=== PATIENT | female | born 1980 | race Caucasian/White ===

== ENCOUNTER → 2017-12-24 10:23 | Outpatient (CLI) | payer BC, SELFPAY ==
[2017-12-24 12:06] LABS: Absolute Neutrophil Count 2.6 X10^3/uL (2.0-7.7); Basophil# 0.04 X10^3/uL; Basophil% 0.8 % (0-1); Eosinophils% 2.1 % (0-5); Hemoglobin 13.4 g/dl (12.0-15.0); Lymphocyte % 37.7 % (19-41); Mean Corp Hgb Conc 32.7 g/gl (32-36); Mean Corpuscular Hgb 29.8 pg (27.0-32.0); Mean Corpuscular Volume 91.3 fL (81-99); Monocyte# 0.26 X10^3/uL; Monocyte% 5.4 % (0-10); Neutrophil # 2.57 X10^3/uL (2.7-7.7); Neutrophil % 53.8 % (47-70); Platelet Count 245 K/mm3 (150-450); RBC Distribution Width CV 13.1 % (11.6-14.6); RBC Distribution Width SD 43.6 fl (35.1-43.9); Red Blood Count 4.49 M/mm3 (4.2-5.4); White Blood Count 4.8 K/mm3 (4.4-11.0)
[2017-12-24 12:09] LABS: POSITIVE COUNT NO; POSITIVE DIFFERENTIAL NO; POSITIVE MORPHOLOGY NO
[2017-12-24 12:36] LABS: Anion Gap 2 (5-15); BUN 15 mg/dL (7-18); BUN/Creat Ratio 23.1 RATIO (10-20); Calcium,Total 8.8 mg/dL (8.5-10.1); Chloride 106 mmol/L (98-107); Cholesterol 177 mg/dL (200); Creatinine, Serum 0.65 mg/dL (0.55-1.02); EST Glomerular Filtration Rate 109 mL/min (>60); Est Glom Filt Rate - Afr Amer 132 mL/min (>60); Glucose 88 mg/dL (74-106); High Density Lipoprotein 86 mg/dL; Potassium 4.2 mmol/L (3.5-5.1); Sodium Level 139 mmol/L (136-145); Triglycerides 42 mg/dL; Very Low Density Lipoprotein 8 mg/dL (5-40)
[2017-12-24 13:42] LABS: Vitamin D,25 Hydroxy 64.5 ng/mL (29.95-100.01)
== END ==
PROVIDERS: Family Provider Family Medicine; PCP Family Medicine; Visit Provider Family Medicine
DX: Z00.00 Encounter for general adult medical examination without abnormal findings (principal); R53.83 Other fatigue
CPT/HCPCS: 36415; 80048; 80061; 82306; 84443; 85025

== ENCOUNTER → 2018-05-21 14:39 | Outpatient (CLI) | payer BC, SELFPAY ==
--- NOTE | 2018-05-21 14:47 | RAD_ITS ---
STUDY: X-RAY - PELVIS REASON FOR EXAM: Female, 37 years old. Hip pain TECHNIQUE: One view of the pelvis was obtained. COMPARISON: None. FINDINGS: There is no evidence of fracture or dislocation. There are mild degenerative changes in the hips. There are no radiodense foreign bodies. RAD/Pelvis 1 or 2 Views IMPRESSION: No fracture or dislocation in the pelvis. Mild degenerative changes in the hips. Electronically Signed: Adalberto Atkins, at 23:18 EDT Tel , Service support ,
[2018-05-21 15:53] LABS: Absolute Lymphocyte Count 2.05 X10^3/ul (0.83-4.51); Absolute Neutrophil Count 3.3 X10^3/uL (2.0-7.7); Basophil# 0.05 X10^3/uL; Basophil% 0.9 % (0-1); Eosinophil# 0.06 X10^3/uL; Hematocrit 42.3 % (37-47); Hemoglobin 14.4 g/dl (12.0-15.0); Lymphocyte # 2.05 X10^3/ul (4.0); Lymphocyte % 35.2 % (19-41); Mean Corpuscular Hgb 30.3 pg (27.0-32.0); Mean Corpuscular Volume 88.9 fL (81-99); Mean Platelet Vol. 10.1 fl (6.2-12.0); Monocyte# 0.31 X10^3/uL; Monocyte% 5.3 % (0-10); Neutrophil # 3.34 X10^3/uL (2.7-7.7); Neutrophil % 57.4 % (47-70); Platelet Count 274 K/mm3 (150-450); RBC Distribution Width CV 12.9 % (11.6-14.6); RBC Distribution Width SD 41.9 fl (35.1-43.9); Red Blood Count 4.76 M/mm3 (4.2-5.4); White Blood Count 5.8 K/mm3 (4.4-11.0)
[2018-05-21 16:00] LABS: Color, Urine Yellow (Yellow); Glucose, Dipstick Normal (Normal); Ketone-Dipstick 5 mg/dl (Negative); Leukocyte Esterase-Dipstick Negative /ul (Negative); Nitrite-Dipstick Negative (Negative); Occult Blood-Urine Negative /ul (Negative); POSITIVE COUNT NO; POSITIVE DIFFERENTIAL NO; POSITIVE MORPHOLOGY NO; Protein-Dipstick Negative (Negative); Specific Gravity, Urine 1.015 (1.002-1.030); Urine Bilirubin Dipstick Negative (Negative); Urine Clarity Clear (Clear); Urine Urobilinogen Normal (Normal)
[2018-05-21 16:24] LABS: ALB/GLOB Ratio 1.2 RATIO (0.9-2.4); AST(SGOT) 19 U/L (15-37); Alanine Aminotransfer ALT/SGPT 24 U/L (13-56); Albumin, Serum 4.6 g/dL (3.2-5.0); Alkaline Phosphatase 49 U/L (45-117); Anion Gap 8 (5-15); BUN 11 mg/dL (7-18); BUN/Creat Ratio 14.1 RATIO (10-20); CRP < 2.90 mg/L (0.0-3.0); Calcium,Total 9.5 mg/dL (8.5-10.1); Chloride 104 mmol/L (98-107); Creatinine, Serum 0.78 mg/dL (0.55-1.02); EST Glomerular Filtration Rate 88 mL/min (>60); Est Glom Filt Rate - Afr Amer 107 mL/min (>60); Glucose 76 mg/dL (74-106); Potassium 3.6 mmol/L (3.5-5.1); Protein, Total 8.6 g/dL (6.4-8.2); Rheumatoid Factor < 10.0 IU/mL (<15); Sodium Level 141 mmol/L (136-145)
[2018-05-21 16:33] LABS: Erythrocyte Sedimentation Rate 3 mm/hr (0-20)
[2018-05-21 16:42] LABS: Protein, Urine (Random) < 6.0 mg/dL (<11.9)
[2018-05-22 09:52] LABS: Vitamin D,25 Hydroxy 44.9 ng/mL (29.95-100.01)
[2018-05-23 14:07] LABS: Anti-Centromere B Ab <0.2 AI (0.0-0.9); Anti-Jo <0.2 AI (0.0-0.9); Anti-Scleroderma-70 AB <0.2 AI (0.0-0.9); RNP Ab 0.2 AI (0.0-0.9); SJOGREN'S Anti-SS-A test 0.2 AI (0.0-0.9); SJOGREN'S Anti-SS-B test < 0.2 AI (0.0-0.9); Smith Ab <0.2 AI (0.0-0.9)
[2018-05-23 16:10] LABS: ANTINUCLEAR ANTIBODIES DIRECT Negative (Negative); Anti-dsDNA Ab 1 IU/mL (0-9)
[2018-05-27 14:07] LABS: Complement C3 113 mg/dL (82-167)
[2018-05-27 15:21] LABS: CCP IgG Antibodies 7 units (0-19); HEPATITIS B SURFACE AG Negative (Negative); HLA B27 Negative (.); Hep B Surface Antibodies Non Reactive (.); Hep C Antibodies 0.1 s/co ratio (0.0-0.9)
== END ==
PROVIDERS: Family Provider Family Medicine; PCP Family Medicine; Visit Provider Internal Medicine Rheumatology
DX: M06.4 Inflammatory polyarthropathy (principal); M35.00 Sjogren syndrome, unspecified; N30.10 Interstitial cystitis (chronic) without hematuria; F41.9 Anxiety disorder, unspecified
CPT/HCPCS: 36415; 72170; 80053; 81002; 81374; 82306; 82570; 84156; 85025; 85652; 86038; 86140; 86160; 86200; 86225; 86235; 86431; 86706; 86803; 87340

== ENCOUNTER 2022-03-23 15:00 | Outpatient (CLI) | payer BC, SELFPAY ==
[2022-03-29 18:03] LABS: HPV Reflexed? NOT INDICATED
== END 2022-03-23 23:59 | disposition home or self-care (01) ==
LOC: LABSPEC 03-24 07:04
PROVIDERS: PCP Family Medicine; Visit Provider Nurse Practitioner
DX: Z01.419 Encounter for gynecological examination (general) (routine) without abnormal findings (principal)
CPT/HCPCS: 88175; G0145

== ENCOUNTER → 2022-03-24 | Outpatient (CLI) | payer BC, SELFPAY ==
[2022-03-24 01:00] LABS: Absolute Lymphocyte Count 1.61 X10^3/uL (0.83-4.51); Absolute Neutrophil Count 4.1 X10^3/uL (2.0-7.7); Basophil# 0.05 X10^3/uL; Basophil% 0.8 % (0-1); Eosinophil# 0.07 X10^3/uL; Eosinophils% 1.1 % (0-5); Hematocrit 39.9 % (37-47); Hemoglobin 13.1 g/dL (12.0-15.0); Lymphocyte # 1.61 X10^3/ul (0.83-4.51); Lymphocyte % 25.9 % (19-41); Mean Corp Hgb Conc 32.8 g/dL (32-36); Mean Corpuscular Hgb 29.8 pg (27.0-32.0); Mean Corpuscular Volume 90.7 fL (81-99); Mean Platelet Vol. 10.5 fl (6.2-12.0); Monocyte# 0.39 X10^3/uL; Monocyte% 6.3 % (0-10); NRBC Flagged by Analyzer 0 % (0-5); Neutrophil # 4.09 X10^3/uL (2.7-7.7); Neutrophil % 65.7 % (47-70); Platelet Count 309 K/mm3 (150-450); RBC Distribution Width CV 13.1 % (11.6-14.6); RBC Distribution Width SD 43.5 fl (35.1-43.9); White Blood Count 6.2 K/mm3 (4.4-11.0)
[2022-03-24 01:22] LABS: BUN 12 mg/dL (7-18); Glucose 80 mg/dL (74-106)
[2022-03-24 01:23] LABS: ALB/GLOB Ratio 1.1 RATIO (0.9-2.4); AST(SGOT) 14 U/L (15-37); Alanine Aminotransfer ALT/SGPT 21 U/L (13-56); Albumin, Serum 3.9 g/dL (3.2-5.0); Alkaline Phosphatase 61 U/L (45-117); Anion Gap 4 (5-15); BUN/Creat Ratio 17.3 RATIO (10-20); Calcium,Total 9.2 mg/dL (8.5-10.1); Chloride 102 mmol/L (98-107); Cholesterol 192 mg/dL (200); EST Glomerular Filtration Rate 98 mL/min (>60); Est Glom Filt Rate - Afr Amer 119 mL/min (>60); Globulin 3.4 g/dL (2.2-4.2); High Density Lipoprotein 102 mg/dL; Potassium 4.2 mmol/L (3.5-5.1); Protein, Total 7.3 g/dL (6.4-8.2); Sodium Level 137 mmol/L (136-145); Thyroid Stim Hormone (TSH) 2.97 uIU/mL (0.358-3.74); Triglycerides 150 mg/dL; Very Low Density Lipoprotein 30 mg/dL (5-40)
== END | disposition home or self-care (01) ==
LOC: OLS.AHF 06:18 → LABSPEC 05-30 08:36
PROVIDERS: PCP Nurse Practitioner; Referring Provider Nurse Practitioner; Visit Provider Nurse Practitioner
DX: Z00.00 Encounter for general adult medical examination without abnormal findings (principal)
CPT/HCPCS: 80053; 80061; 84443; 85025

== ENCOUNTER → 2022-05-11 | Outpatient (CLI) | payer BC, SELFPAY ==
[2022-05-11 21:36] LABS: Thyroid Stim Hormone (TSH) 0.71 uIU/mL (0.358-3.74)
== END | disposition home or self-care (01) ==
PROVIDERS: PCP Nurse Practitioner; Visit Provider Nurse Practitioner
DX: E04.2 Nontoxic multinodular goiter (principal); E03.9 Hypothyroidism, unspecified
CPT/HCPCS: 84443

== ENCOUNTER → 2022-05-26 | Outpatient (CLI) | payer BC, SELFPAY ==
--- NOTE | 2022-05-26 11:56 | US_ITS ---
STUDY: THYROID ULTRASOUND REASON FOR EXAM: Female, 41 years old. Palpable nodules TECHNIQUE: Ultrasound evaluation of the thyroid was performed with real-time and static del castillo-scale imaging. COMPARISON: Previous study from outside institution not available for comparison. If/when it becomes available an addendum will be performed FINDINGS: RIGHT LOBE: The right lobe of the thyroid gland measures 4.6 x 1.5 x 1.3 cm. There is a homogeneous echotexture. Supervisor Special Effects notes 3 separate nodules, there is a 0.4 cm cyst, a partially calcified 0.6 cm solid nodule and a poorly defined 0.6 m solid nodule. LEFT LOBE: The left lobe of the thyroid gland measures 5.0 x 1.6 x 0.7 cm. There is a homogeneous echotexture. There is a solid 0.5 cm well-defined upper pole nodule. ISTHMUS: The isthmus measures 3 mm. The regional lymph nodes are normal. US/Thyroid IMPRESSION: Normal size thyroid gland. Bilateral nodules. TI-RADS points: 4. TI-RADS category: TR4. Nodules are moderately suspicious but no FNA or follow-up is necessary given the small size of the nodules. Electronically Signed: David Moore MD at 15:11 EDT ,
== END | disposition home or self-care (01) ==
PROVIDERS: PCP Nurse Practitioner; Referring Provider Nurse Practitioner; Visit Provider Nurse Practitioner
DX: E04.2 Nontoxic multinodular goiter (principal)
CPT/HCPCS: 76536

== ENCOUNTER → 2022-08-09 | Outpatient (CLI) | payer BC, SELFPAY | END | disposition home or self-care (01) | PROVIDERS: PCP Family Medicine; Visit Provider Nurse Practitioner | DX: Z00.00 Encounter for general adult medical examination without abnormal findings (principal) ==

== ENCOUNTER → 2022-08-09 | Outpatient (CLI) | payer BC, SELFPAY | END | disposition home or self-care (01) | LOC: LABSPEC 21:44 | PROVIDERS: PCP Nurse Practitioner; Visit Provider Nurse Practitioner | DX: N30.90 Cystitis, unspecified without hematuria (principal) | CPT/HCPCS: 87077; 87086; 87088; 87186 ==

== ENCOUNTER → 2023-05-22 | Outpatient (CLI) | payer BC, SELFPAY ==
[2023-05-22 22:16] LABS: Absolute Lymphocyte Count 2.17 X10^3/uL (0.83-4.51); Absolute Neutrophil Count 3.5 X10^3/uL (2.0-7.7); Basophil# 0.05 X10^3/uL; Basophil% 0.8 % (0-1); Eosinophil# 0.13 X10^3/uL; Eosinophils% 2.1 % (0-5); Hematocrit 41.6 % (37-47); Hemoglobin 13.2 g/dL (12.0-15.0); Lymphocyte # 2.17 X10^3/ul (0.83-4.51); Lymphocyte % 34.3 % (19-41); Mean Corp Hgb Conc 31.7 g/dL (32-36); Mean Corpuscular Hgb 29.4 pg (27.0-32.0); Mean Corpuscular Volume 92.7 fL (81-99); Mean Platelet Vol. 10.7 fl (6.2-12.0); Monocyte# 0.41 X10^3/uL; Monocyte% 6.5 % (0-10); NRBC Flagged by Analyzer 0 % (0-5); Neutrophil # 3.54 X10^3/uL (2.7-7.7); Platelet Count 294 K/mm3 (150-450); RBC Distribution Width CV 13.1 % (11.6-14.6); RBC Distribution Width SD 44.5 fl (35.1-43.9); Red Blood Count 4.49 M/mm3 (4.2-5.4); White Blood Count 6.3 K/mm3 (4.4-11.0)
[2023-05-22 22:40] LABS: AST(SGOT) 13 U/L (15-37); Alanine Aminotransfer ALT/SGPT 21 U/L (13-56); Albumin, Serum 3.7 g/dL (3.2-5.0); Alkaline Phosphatase 63 U/L (45-117); Anion Gap 5 (5-15); BUN 15 mg/dL (7-18); BUN/Creat Ratio 18.9 RATIO (10-20); Calcium,Total 9.5 mg/dL (8.5-10.1); Chloride 106 mmol/L (98-107); Cholesterol 193 mg/dL (200); Creatinine, Serum 0.79 mg/dL (0.55-1.02); EST Glomerular Filtration Rate 84 mL/min (>60); Est Glom Filt Rate - Afr Amer 102 mL/min (>60); Globulin 3.7 g/dL (2.2-4.2); Glucose 82 mg/dL (74-106); High Density Lipoprotein 86 mg/dL; Potassium 3.6 mmol/L (3.5-5.1); Protein, Total 7.4 g/dL (6.4-8.2); Sodium Level 139 mmol/L (136-145); Triglycerides 145 mg/dL; Very Low Density Lipoprotein 29 mg/dL (5-40)
[2023-05-23 17:46] LABS: Thyroid Stim Hormone (TSH) 1.31 uIU/mL (0.358-3.74)
== END | disposition home or self-care (01) ==
PROVIDERS: PCP Nurse Practitioner; Referring Provider Nurse Practitioner; Visit Provider Nurse Practitioner
DX: E03.9 Hypothyroidism, unspecified (principal); E78.00 Pure hypercholesterolemia, unspecified; D64.9 Anemia, unspecified
CPT/HCPCS: 80053; 80061; 84443; 85025

== ENCOUNTER → 2024-05-30 | Outpatient (CLI) | payer BC, SELFPAY ==
[2024-05-30 18:06] LABS: T4 Free Direct 0.88 ng/dL (0.76-1.46); Thyroid Stim Hormone (TSH) 0.749 uIU/mL (0.358-3.740)
== END | disposition home or self-care (01) ==
LOC: MFPLAB 14:45
PROVIDERS: PCP Nurse Practitioner; Visit Provider Registered Nurse
DX: E03.9 Hypothyroidism, unspecified (principal)
CPT/HCPCS: 36415; 84439; 84443

== ENCOUNTER → 2024-06-03 | Outpatient (CLI) | payer BC, SELFPAY ==
--- NOTE | 2024-06-03 14:06 | US_ITS ---
STUDY: THYROID ULTRASOUND REASON FOR EXAM: Female, 44 years old patient with abnormal ultrasound. TECHNIQUE: Ultrasound evaluation of the thyroid was performed with real-time and static del castillo-scale imaging. COMPARISON: Thyroid ultrasound dated May 26, 2022. FINDINGS: RIGHT LOBE: The right lobe of the thyroid gland measures 3.8 x 1.2 x 1.2 cm. There is a heterogeneous echotexture. There are scattered small nodules. There is a hypoechoic nodule present within the mid pole of the right lobe of the thyroid that measures 4.3 x 2.8 x 5.4 mm in size. There is a second more isoechoic nodule within the upper pole of the right lobe of thyroid measuring 3.5 x 2.7 x 3.0 mm. There is an echogenic nodule within the lower pole of the right lobe of thyroid measuring 5.5 x 4.2 x 5.4 mm. This lateralizes acoustic shadowing suggesting associated calcification. This nodule appears similar on the previous ultrasound. LEFT LOBE: The left lobe of the thyroid gland measures 4.7 x 1 x 1.6 cm. cm. There is a heterogeneous echotexture. There is a well-circumscribed almost isoechoic nodule within the upper pole of the left lobe of thyroid measuring 5.2 x 3.9 x 5.5 mm. There is a peripheral curvilinear lucency within this nodule. This appears similar to previous ultrasound. ISTHMUS: The isthmus measures 2 mm. The regional lymph nodes are normal. US/Thyroid IMPRESSION: Scattered thyroid nodules as described. The largest nodules in both lobes appear similar to previous ultrasound. Electronically Signed: Nisha Andrade MD at 8:05 EDT ,
== END | disposition home or self-care (01) ==
PROVIDERS: PCP Family Medicine; Referring Provider Registered Nurse; Visit Provider Registered Nurse
DX: R93.89 Abnormal findings on diagnostic imaging of other specified body structures (principal)
CPT/HCPCS: 76536

== ENCOUNTER 2024-07-14 10:34 | Emergency (ER) | payer BC, SELFPAY ==
[2024-07-14] VITALS (11 sets, daily range): BP systolic 79–123; BP diastolic 60–77; PULSE 62–103; RESP 16–18; TEMP 37.1–37.4; O2SAT 98–100; BMI 21.5
--- NOTE | 2024-07-14 11:10 | EKG12_ITS ---
Test Reason : Blood Pressure : / mmHG Vent. Rate : 078 BPM Atrial Rate : 078 BPM P-R Int : 128 ms QRS Dur : 090 ms QT Int : 384 ms P-R-T Axes : 063 070 030 degrees QTc Int : 437 ms Normal sinus rhythm Normal ECG Confirmed by KARLI DOSS MD ([id number]), news assignment editor GIFTY RAHMAN ([id number]) on 07/15/2024 8:48:33 AM Referred By: LADY Confirmed By:KARLI DOSS MD
--- NOTE | 2024-07-14 11:10 | CT_ITS ---
HISTORY: periumbilical pain. TECHNIQUE: Helically acquired images were obtained of the abdomen and pelvis after the intravenous administration of 100mL Isovue-300. A radiation dose optimization technique was used for this scan. 367 images. COMPARISON: 02/29/2016. FINDINGS: LOWER CHEST: Trace bilateral pleural effusions with mild lower lobe atelectasis. BOWEL: Bowel including appendix nondilated. Moderate stool in the colon. PERITONEUM: No significant ascites. LIVER: No enhancing mass. Mild periportal edema. GALLBLADDER/BILIARY TREE: Cholecystectomy. SPLEEN/PANCREAS: Homogeneous and nonenlarged. ADRENAL GLANDS/KIDNEYS: Unremarkable. VESSELS: No abdominal aortic aneurysm. PELVIC ORGANS: Chronic prominent adnexal vessels. BONES: Intact. CT/Abdomen/Pelvis W IV Cont ONLY IMPRESSION: Moderate stool in the colon. Trace pleural effusions. Mild periportal edema of the liver and prominent adnexal vessels suggesting pelvic congestive syndrome, similar to prior. Electronically Signed: Marielos Galvan MD at 15:21 EDT ,
[2024-07-14 11:32] LABS: Absolute Lymphocyte Count 0.52 X10^3/uL (0.83-4.51); Absolute Neutrophil Count 1.8 X10^3/uL (2.0-7.7); Basophil# 0.02 X10^3/uL; Basophil% 0.8 % (0-1); Hematocrit 38.3 % (37-47); Hemoglobin 12.6 g/dL (12.0-15.0); Lymphocyte # 0.52 X10^3/ul (0.83-4.51); Lymphocyte % 20.6 % (19-41); Mean Corp Hgb Conc 32.9 g/dL (32-36); Mean Corpuscular Hgb 29.4 pg (27.0-32.0); Mean Corpuscular Volume 89.3 fL (81-99); Mean Platelet Vol. 9.5 fl (6.2-12.0); Monocyte# 0.14 X10^3/uL; Monocyte% 5.5 % (0-10); NRBC Flagged by Analyzer 0 % (0-5); Neutrophil # 1.84 X10^3/uL (2.7-7.7); Neutrophil % 72.7 % (47-70); POSITIVE DIFFERENTIAL YES; Platelet Count 156 K/mm3 (150-450); RBC Distribution Width CV 13.1 % (11.6-14.6); RBC Distribution Width SD 42.8 fl (35.1-43.9); Red Blood Count 4.29 M/mm3 (4.2-5.4); White Blood Count 2.5 K/mm3 (4.4-11.0)
--- NOTE | 2024-07-14 11:33 | EDS_ITS ---
HPI History of Present Illness Chief Complaint: Fever Narrative Narrative: Patient is a 44-year-old female with no known significant past medical history who presents to the emergency department the chief complaint of fever and chills not feeling well. States on of this past week she started not feeling well and by Sunday she was breaking out in sweats. Patient denies any recent sick contacts. States that she followed up with a outpatient clinic and they advised her to come here for the valuation management. Patient states that she has been having some abdominal pain around her bellybutton as well. Patient states that she had her gallbladder removed but has all her other organs. Patient denies any recent sick contacts. States that nobody else is sick. She notes that she has had a fever at home of 103. PFSH FOR[facility]LY [facility], [facility] Medical History Abnormal menses delivery delivered Home Medications ?Medication ?Instructions ?Recorded ?Last Taken ?Type famotidine 20 mg tablet 20 mg PO BID ##30 02/29/16 Unknown Rx multivitamin 1 tab PO DAILY 12/07/21 Unknown History Bacillus coagulans 800 million cell PO 03/23/22 Unknown History cell tablet (Digestive Advantage Probiotics-Prebiotic) collagen PO QDAY 03/23/22 Unknown History levothyroxine 50 mcg tablet 50 mcg PO DAILY #30 tabs 05/23/23 Unknown Rx dicyclomine 10 mg capsule 10 mg PO TID PRN abdominal pain 07/14/24 Unknown Rx #20 caps ondansetron 4 mg disintegrating 4 mg PO Q6H PRN nausea and 07/14/24 Unknown Rx tablet vomiting #20 tabs Allergy/AdvReac Type Severity Reaction Status Date / Time morphine Allergy Anaphylaxis Verified 07/14/24 10:35 Surgical History History of cholecystectomy Social History Smoking Status: Former smoker ROS ROS ED ROS Narrative Constitutional: Complains of fever and chills as noted above denies any headaches Eyes: Denies change in vision double or blurry vision Cardiovascular: Denies chest pain or palpitations Respiratory: Denies coughing wheezing shortness of breath Abdomen: Complains of abdominal pain nausea as noted above denies vomiting diarrhea : Denies any painful urination, polyuria complains that she is on her menstrual cycle currently Neurological: Denies numbness, weakness, tingling Musculoskeletal: Denies back pain Skin: Denies rashes or lesions EXAM Physical Exam Narrative Exam Narrative: General: Patient lying in bed rest comfortably appears to be not feeling well overall Head: Atraumatic, normocephalic Eyes: PERRL bilateral, EOMI bilateral, no conjunctival injection noted Neck: Soft, supple, trach midline, patient is full range of motion of her neck no concern for meningitis Cardiovascular: Patient tachycardic with a regular rhythm no murmurs gallops rubs noted Respiratory: Clear to auscultation bilaterally no rales rhonchi or wheezes noted Abdomen: Soft, nondistended, tenderness palpation around her umbilical region Extremities: +5/5 strength noted in the bilateral lower extremities, no pedal edema no exam Neurological: Patient following commands knew that she was at [facility] years 2023 Skin: Warm, dry, tact Const Vital Signs: 07/14/24 10:35 07/14/24 11:26 07/14/24 11:38 Temperature 99.2 F H 99.2 F H Temperature Source Oral Oral Pulse Rate 103 H 77 78 Respiratory Rate 18 16 Respiratory Pattern Blood Pressure 117/68 98/67 96/62 Blood Pressure Mean 84 77 73 Pulse Ox 100 98 98 Oxygen Delivery Method Room Air Room Air Room Air 07/14/24 11:42 07/14/24 12:00 07/14/24 13:00 Temperature 99.2 F H 99.3 F H Temperature Source Oral Oral Pulse Rate 70 62 Respiratory Rate 16 16 Respiratory Pattern Normal Blood Pressure 101/70 89/65 L Blood Pressure Mean 80 73 Pulse Ox 98 98 Oxygen Delivery Method Room Air Room Air 07/14/24 13:34 07/14/24 14:00 07/14/24 15:00 Temperature 99.2 F H 99.0 F Temperature Source Oral Oral Pulse Rate 66 70 Respiratory Rate 16 16 Respiratory Pattern Blood Pressure 79/60 L 105/70 100/74 Blood Pressure Mean 66 81 82 Pulse Ox 98 98 Oxygen Delivery Method Room Air Room Air 07/14/24 16:00 07/14/24 17:00 Temperature 99.0 F 99.0 F Temperature Source Oral Oral Pulse Rate 68 74 Respiratory Rate 16 16 Respiratory Pattern Blood Pressure 103/77 91/72 Blood Pressure Mean 85 78 Pulse Ox 98 Oxygen Delivery Method Room Air MDM MDM MDM Narrative Medical decision making narrative: Patient is a 44-year-old female who presents to the emergency department the chief complaint of fever chills diffuse bodyaches and not feeling well. Patient will have a workup performed here on the differential diagnose includes but not limited to viral gastroenteritis, COVID, flu, appendicitis. Once workup is obtained reviewed she will be reevaluated. Patient be given IV fluids for hydration and Zofran. Patient's CBC showed a white blood count 2.5, previous blood count on 05/22/2023 showed a white blood cell count of 6.3, hemoglobin stable 12.6, platelet count was noted to be normal at 156, her absolute neutrophil count was noted be 1.8 which is mildly low based on lab studies here, sodium was noted be normal 136, potassium normal 3.9, creatinine normal at 0.76. Patient's total bilirubin was 81.70 is chronically elevated, AST and ALT were 42 and 48 respectively, troponin normal at 19 EKG reviewed and showed sinus rhythm with a rate of 78 bpm, lipase normal at 37. Patient's urinalysis showed 150 ketones this likely secondary to dehydration, 250 occult blood negative nitrites, negative leukocyte esterase 5- 10 white cells with 1+ bacteria she does not have any urinary symptoms, test was negative. Patient's urine will be sent for culture. Patient CT abdomen pelvis showed trace pleural effusions mild periportal edema of the liver and prominent adnexal vessels suggesting pelvic congestion syndrome which is similar to previous exam. Patient's COVID, flu, RSV were negative. Patient's strep pyogenes group A was negative and this will be sent for culture. Patient's monotest was negative. On reevaluation the patient she states that she feels similar to when she arrived. Patient states that her her abdominal pain is waxing and waning. Patient denies any recent travel history denies any rashes denies any recent sick contacts. Patient denies any recent weight loss. Patient has remained afebrile from the time that she has arrived despite saying that she has had fevers at home of 103. I did offer her admission for observation for further workup of her symptoms and not feeling well however she states that she needs to get home to her family there depending on her. She was advised to have her blood work repeated within the next week. She was advised to return with worsening symptoms or any other concerns. She will be sent a prescription for Levsin/Bentyl, Zofran and was advised to rotate Tylenol and ibuprofen [id number]. She was advised to start with a bland diet and advance as tolerated. Lab Data Labs: Laboratory Results - last 24 hr 07/14/24 07/14/24 07/14/24 11:20 12:01 14:18 WBC 2.5 L RBC 4.29 Hgb 12.6 Hct 38.3 MCV 89.3 MCH 29.4 MCHC 32.9 RDW Std Deviation 42.8 RDW Coeff of Jude 13.1 Plt Count 156 MPV 9.5 Immature Gran % (Auto) 0.400 Neut % (Auto) 72.7 H Lymph % (Auto) 20.6 [place] % (Auto) 5.5 Eos % (Auto) 0.0 Baso % (Auto) 0.8 Absolute Neuts (auto) 1.8 L Absolute Lymphs (auto) 0.52 L Nucleated RBC % 0 Differential Comment COMMENT Diff Path Review May foll Sodium 136 Potassium 3.9 Chloride 102 Carbon Dioxide 26.0 Anion Gap 8 BUN 10 Creatinine 0.76 Estim Creat Clear Calc 78.14 Est GFR (MDRD) Af Amer 106 Est GFR (MDRD) Non-Af 88 BUN/Creatinine Ratio 13.1 Glucose 87 Calcium 8.4 L Total Bilirubin 1.70 H AST 42 H ALT 48 Alkaline Phosphatase 80 Troponin I High Sens 19 Total Protein 6.9 Albumin 3.3 Globulin 3.6 Albumin/Globulin Ratio 0.9 Lipase 37 Urine Color Yellow Urine Clarity Sl. Cloudy Urine pH 6.0 Ur Specific Armour 1.010 Urine Protein 30 H Urine Glucose (UA) Normal Urine Ketones 150 A* Urine Occult Blood 250 H Urine Nitrite Negative Urine Bilirubin Negative Urine Urobilinogen Normal Ur Leukocyte Esterase Negative Urine RBC 5-10 SEEN Urine WBC 5-10 SEEN Ur Squamous Epith Cells 0-5 SEEN Urine Bacteria 1+ Urine Mucus 0 SEEN Urine Test Cancelled Negative Monoscreen 07/14/24 16:14 WBC RBC Hgb Hct MCV MCH MCHC RDW Std Deviation RDW Coeff of Jude Plt Count MPV Immature Gran % (Auto) Neut % (Auto) Lymph % (Auto) [place] % (Auto) Eos % (Auto) Baso % (Auto) Absolute Neuts (auto) Absolute Lymphs (auto) Nucleated RBC % Differential Comment Diff Path Review Sodium Potassium Chloride Carbon Dioxide Anion Gap BUN Creatinine Estim Creat Clear Calc Est GFR (MDRD) Af Amer Est GFR (MDRD) Non-Af BUN/Creatinine Ratio Glucose Calcium Total Bilirubin AST ALT Alkaline Phosphatase Troponin I High Sens Total Protein Albumin Globulin Albumin/Globulin Ratio Lipase Urine Color Urine Clarity Urine pH Ur Specific [place]our Urine Protein Urine Glucose (UA) Urine Ketones Urine Occult Blood Urine Nitrite Urine Bilirubin Urine Urobilinogen Ur Leukocyte Esterase Urine RBC Urine WBC Ur Squamous Epith Cells Urine Bacteria Urine Mucus Urine Test Monoscreen Negative Radiography Diagnostic Testing: Clinical Impression(s) from Imaging Studies Abdomen/Pelvis CT 07/14/24 11:10 IMPRESSION: Moderate stool in the colon. Trace pleural effusions. Mild periportal edema of the liver and prominent adnexal vessels suggesting pelvic congestive syndrome, similar to prior. Electronically Signed: Marielos Galvan MD at 15:21 EDT Reading Location ID and State: [facility] / [place] Tel , Service support , Discharge Plan Triage Chief Complaint: Fever ED Provider: Tony Landaverde Dx/Rx/DC Orders Clinical Impression: Chills, Abdominal pain Prescriptions: New ondansetron 4 mg tablet,disintegrating 4 mg PO Q6H PRN (Reason: nausea and vomiting) Qty: 20 0RF dicyclomine 10 mg capsule 10 mg PO TID PRN (Reason: abdominal pain) Qty: 20 0RF No Action multivitamin Tablet 1 tab PO DAILY Digestive Advantage Probio-Pre 800 million cell tablet PO collagen PO QDAY levothyroxine 50 mcg tablet 50 mcg PO DAILY Qty: 30 12RF famotidine 20 MG tablet 20 mg PO BID Qty: 30 0RF Primary Care Provider: Favio Hudson Referrals: Favio Hudson MD [Primary Care Provider] - Activity Restrictions/Additional Instructions: Follow-up your primary care physician outpatient setting. Return with worsening symptoms or any other concerns that we discussed here. Have your CBC and blood work repeated within the next few days. Follow-up on your urine culture with your primary care physician. Rotate Tylenol and ibuprofen [id number] for pain and fever control. Take prescriptions as prescribed. Print Language: Citizen Of [place] Disposition Disposition: Home, Self Care
[2024-07-14] MEDS: 0.9% Normal Saline (1000mL) 1,000 ML 999 ML IV ×2 (11:37→13:41)
[2024-07-14] MEDS: Ondansetron 4 MG/2 ML Vial IV (11:37)
[2024-07-14 11:47] LABS: Differential Indicated SCAN CRITERIA MET
[2024-07-14 11:50] LABS: ALB/GLOB Ratio 0.9 RATIO (0.9-2.4); AST(SGOT) 42 U/L (15-37); Alanine Aminotransfer ALT/SGPT 48 U/L (13-56); Albumin, Serum 3.3 g/dL (3.2-5.0); Alkaline Phosphatase 80 U/L (45-117); Anion Gap 8 (5-15); BUN 10 mg/dL (7-18); BUN/Creat Ratio 13.1 RATIO (10-20); Calcium,Total 8.4 mg/dL (8.5-10.1); Chloride 102 mmol/L (98-107); Creatinine, Serum 0.76 mg/dL (0.55-1.02); EST Glomerular Filtration Rate 88 mL/min (>60); Est Glom Filt Rate - Afr Amer 106 mL/min (>60); Estimated Creatinine Clearance 78.14 ml/min; Globulin 3.6 g/dL (2.2-4.2); Glucose 87 mg/dL (74-106); Lipase 37 U/L (13-75); Potassium 3.9 mmol/L (3.5-5.1); Protein, Total 6.9 g/dL (6.4-8.2); Sodium Level 136 mmol/L (136-145); Troponin-I HS 19 pg/mL (3.0-54.0)
[2024-07-14 12:08] LABS: Mucous, Urine 0 SEEN /hpf (<or=2+)
[2024-07-14 12:10] LABS: Color, Urine Yellow (Yellow); Glucose, Dipstick Normal (Normal); Leukocyte Esterase-Dipstick Negative /ul (Negative); Nitrite-Dipstick Negative (Negative); Occult Blood-Urine 250 /ul (Negative); Protein-Dipstick 30 mg/dl (Negative); Urine Bilirubin Dipstick Negative (Negative); Urine Clarity Sl. Cloudy (Clear); Urine Urobilinogen Normal (Normal)
[2024-07-14 12:11] LABS: Ketone-Dipstick 150 mg/dl (Negative)
[2024-07-14 12:31] LABS: Bacteria 1+ /hpf (None Seen); Squamous Epithelial Cells - UA 0-5 SEEN /hpf (5-10); White Blood Cells 5-10 SEEN /hpf (0-5)
[2024-07-14 12:32] LABS: Red Blood Cells-Urine 5-10 SEEN /hpf (0-5)
[2024-07-14 14:28] LABS: Internal QC Validated? YES +Cl - CLEAR BKGD; Pregnancy, Urine Negative Negative
[2024-07-14 17:08] LABS: Internal QC Validated? YES +Cl - CLEAR BKGD; Monotest Negative (Negative); Record Kit Lot#, Mono 13241033
[2024-07-15 15:05] LABS: Pathologist Review Reviewed
== END 2024-07-14 17:57 | disposition home or self-care (01) ==
PROVIDERS: Emergency Provider Emergency Medicine; PCP Family Medicine; Visit Provider Emergency Medicine
DX: R10.9 Unspecified abdominal pain (principal); R11.0 Nausea; R68.83 Chills (without fever); R17 Unspecified jaundice; J90 Pleural effusion, not elsewhere classified; K76.89 Other specified diseases of liver; M79.10 Myalgia, unspecified site; Z90.49 Acquired absence of other specified parts of digestive tract; Z87.891 Personal history of nicotine dependence
CPT/HCPCS: 74177; 80053; 81001; 81025; 83690; 84484; 85025; 86308; 87086; 87631; 87651; 93005; 96361; 96374; 99283; J7030; Q9967; A4216; J2405

== ENCOUNTER → 2024-07-16 | Outpatient (CLI) | payer BC, SELFPAY ==
--- NOTE | 2024-07-16 15:36 | RAD_ITS ---
HISTORY: FEVER AND CHILLS. TECHNIQUE: XR Chest 2 Views. COMPARISON: None. FINDINGS: CARDIOMEDIASTINAL BORDERS: Cardiac silhouette within normal limits in size. Mediastinal contour unremarkable. LUNGS: Radiographically clear. PLEURA: No pleural effusion or pneumothorax seen. OSSEOUS STRUCTURES: Unremarkable. RAD/Chest PA and Lateral IMPRESSION: No acute cardiopulmonary process identified. Electronically Signed: Marielos Galvan MD at 8:10 EDT ,
[2024-07-16 17:52] LABS: Absolute Lymphocyte Count 0.51 X10^3/uL (0.83-4.51); Absolute Neutrophil Count 1.8 X10^3/uL (2.0-7.7); Basophil# 0.02 X10^3/uL; Basophil% 0.8 % (0-1); Eosinophil# 0.01 X10^3/uL; Eosinophils% 0.4 % (0-5); Hematocrit 37.1 % (37-47); Hemoglobin 12.1 g/dL (12.0-15.0); Lymphocyte # 0.51 X10^3/ul (0.83-4.51); Lymphocyte % 20.7 % (19-41); Mean Corp Hgb Conc 32.6 g/dL (32-36); Mean Corpuscular Hgb 28.9 pg (27.0-32.0); Mean Corpuscular Volume 88.5 fL (81-99); Mean Platelet Vol. 10.4 fl (6.2-12.0); Monocyte# 0.15 X10^3/uL; Monocyte% 6.1 % (0-10); NRBC Flagged by Analyzer 0 % (0-5); Neutrophil # 1.76 X10^3/uL (2.7-7.7); Neutrophil % 71.6 % (47-70); POSITIVE DIFFERENTIAL YES; Platelet Count 151 K/mm3 (150-450); RBC Distribution Width SD 42.3 fl (35.1-43.9); Red Blood Count 4.19 M/mm3 (4.2-5.4); White Blood Count 2.5 K/mm3 (4.4-11.0)
[2024-07-16 17:56] LABS: Differential Indicated SCAN CRITERIA MET
[2024-07-16 18:34] LABS: Platelet Estimate ADEQUATE (ADEQ); Red Cell Morphology NORM C+C NORMAL (NORM C&C)
[2024-07-17 13:42] LABS: Pathologist Review Reviewed
== END | disposition home or self-care (01) ==
LOC: MTLAB 15:35
PROVIDERS: PCP Family Medicine; Referring Provider Family Medicine; Visit Provider Family Medicine
DX: R50.9 Fever, unspecified (principal)
CPT/HCPCS: 36415; 71046; 85025

== ENCOUNTER → 2024-07-23 | Outpatient (CLI) | payer BC, SELFPAY ==
[2024-07-23 17:35] LABS: Absolute Lymphocyte Count 2.03 X10^3/uL (0.83-4.51); Absolute Neutrophil Count 3.2 X10^3/uL (2.0-7.7); Basophil# 0.05 X10^3/uL; Basophil% 0.8 % (0-1); Eosinophil# 0.16 X10^3/uL; Eosinophils% 2.7 % (0-5); Hematocrit 40.2 % (37-47); Hemoglobin 12.8 g/dL (12.0-15.0); Lymphocyte # 2.03 X10^3/ul (0.83-4.51); Lymphocyte % 34.1 % (19-41); Mean Corp Hgb Conc 31.8 g/dL (32-36); Mean Corpuscular Hgb 28.9 pg (27.0-32.0); Mean Corpuscular Volume 90.7 fL (81-99); Mean Platelet Vol. 9.7 fl (6.2-12.0); Monocyte# 0.45 X10^3/uL; Monocyte% 7.6 % (0-10); NRBC Flagged by Analyzer 0 % (0-5); Neutrophil # 3.21 X10^3/uL (2.7-7.7); Platelet Count 479 K/mm3 (150-450); Red Blood Count 4.43 M/mm3 (4.2-5.4)
== END | disposition home or self-care (01) ==
LOC: MFPLAB 15:04
PROVIDERS: PCP Family Medicine; Visit Provider Family Medicine
DX: D72.819 Decreased white blood cell count, unspecified (principal)
CPT/HCPCS: 36415; 85025

== ENCOUNTER → 2024-08-08 | Outpatient (CLI) | payer BC, SELFPAY ==
--- NOTE | 2024-08-08 14:03 | RAD_ITS ---
STUDY: X-RAY - LEFT WRIST REASON FOR EXAM: Female, 44 years old. FALL TECHNIQUE: 3 view(s) of the wrist were obtained. COMPARISON: None. FINDINGS: Normal visualized distal radius and ulna. Normal radiocarpal articulation. Normal distal radioulnar articulation. Normal carpal bones. Normal carpal articulations. Normal carpometacarpal articulation of the thumb. Normal second through fifth carpometacarpal articulations. Normal visualized metacarpal bones. The soft tissue structures are unremarkable. RAD/Wrist min 3 Views IMPRESSION: Normal x-ray examination of the wrist. Electronically Signed: Brad Koch MD at 15:00 EDT ,
--- NOTE | 2024-08-08 14:03 | RAD_ITS ---
STUDY: X-RAY - RIGHT WRIST REASON FOR EXAM: Female, 44 years old. FALL TECHNIQUE: 3 view(s) of the wrist were obtained. COMPARISON: None. FINDINGS: Normal visualized distal radius and ulna. Normal radiocarpal articulation. Normal distal radioulnar articulation. Normal carpal bones. Normal carpal articulations. Normal carpometacarpal articulation of the thumb. Normal second through fifth carpometacarpal articulations. Normal visualized metacarpal bones. The soft tissue structures are unremarkable. RAD/Wrist min 3 Views IMPRESSION: Normal x-ray examination of the wrist. Electronically Signed: Brad Koch MD at 15:01 EDT ,
== END | disposition home or self-care (01) ==
LOC: MTRAD 14:00
PROVIDERS: PCP Family Medicine; Referring Provider Family Medicine; Visit Provider Family Medicine
DX: M25.531 Pain in right wrist (principal); M25.532 Pain in left wrist; W19.XXXA Unspecified fall, initial encounter
CPT/HCPCS: 73110

== ENCOUNTER → 2025-05-21 | Outpatient (CLI) | payer BC, SELFPAY ==
[2025-05-21 18:37] LABS: T3 Total - Triiodothyronine 0.89 ng/mL (0.80-2.00)
[2025-05-25 10:57] LABS: Free T3 2.8 pg/mL (2.18-3.98)
== END | disposition home or self-care (01) ==
LOC: MTLAB 16:20
PROVIDERS: PCP Family Medicine; Referring Provider Family Medicine; Visit Provider Family Medicine
DX: E03.9 Hypothyroidism, unspecified (principal)
CPT/HCPCS: 36415; 84439; 84443; 84480; 84481